=== PATIENT | male | born 1950 | race Caucasian/White ===

== ENCOUNTER 2023-05-19 20:57 | Outpatient (CLI) | payer MEDICARE, BC, SELFPAY | END 2023-05-19 20:58 | disposition home or self-care (01) | LOC: SLEEP 21:01 | PROVIDERS: PCP Family Medicine; Visit Provider Internal Medicine | DX: G47.33 Obstructive sleep apnea (adult) (pediatric) (principal); G47.30 Sleep apnea, unspecified | CPT/HCPCS: 95811; A9270 ==